=== PATIENT | male | born 1950 | race Two or more races ===

== ENCOUNTER 2019-03-26 13:22 | Inpatient (IN) | payer MEDICARE, MEDICAID ==
[~2019-03-26] VITALS: Ht 170.2 cm; Wt 64.4 kg
--- NOTE | 2019-03-26 13:40 | NUR ---
[id number] FRM DAY CARE FOR DIZZINESS S/P BOWEL MOVEMENT W/ "DARK STOOL." PATIENT A/OX4, BREATHING EVEN AND UNLABORED, NO SOB NOTED. CHANGED INTO GOWN, ATTACHED TO THE LABORATORY MECHANIC HELPER.
[2019-03-26 14:34] LABS: BASOPHILS % (AUTO) 0.3 % (0.0-2.0); EOSINOPHILS % (AUTO) 0.2 % (0.0-6.0); HEMATOCRIT 43 % (39-51); HEMOGLOBIN 14.3 g/dL (13.5-17.5); LYMPHOCYTES # (AUTO) 0.9 /CMM (0.8-4.8); LYMPHOCYTES % (AUTO) 11.2 % (20.0-44.0); MEAN CORPUSCULAR HGB CONC 33 g/dl (31.0-36.0); MEAN CORPUSCULAR VOLUME 91 fL (80-96); MONOCYTES # (AUTO) 0.5 /CMM (0.1-1.30); MONOCYTES % (AUTO) 6.3 % (2.0-12.0); NEUTROPHILS # (AUTO) 6.3 /CMM (1.8-8.9); PLATELET COUNT (AUTO) 281 /CMM (150-450); RED BLOOD CELL COUNT(AUTO) 4.73 MIL/uL (4.5-6.0); WHITE BLOOD COUNT (AUTO) 7.7 K/uL (4.3-11.0)
[2019-03-26 14:41] LABS: CALCIUM, SERUM 9.1 mg/dL (8.5-10.1); CARBON DIOXIDE 30 mmol/L (21-32); CHLORIDE 103 mmol/L (98-107); CREATININE 1.3 mg/dL (0.6-1.3); GLUCOSE 90 mg/dL (74-106); POTASSIUM 4.3 mmol/L (3.5-5.1); SODIUM SERUM 139 mmol/L (136-145); UREA NITROGEN, BLOOD 55 mg/dL (7-18)
[2019-03-26 14:47] LABS: ALANINE AMINOTRANSFERASE 17 U/L (12-78); ALBUMIN 3.6 g/dL (3.4-5.0); ALKALINE PHOSPHATASE 67 U/L (46-116); ASPARTATE AMINOTRANSFERASE 12 U/L (15-37); BILIRUBIN,DIRECT 0.1 mg/dL (0.0-0.2); BILIRUBIN,TOTAL 0.5 mg/dL (0.2-1.0); TOTAL PROTEIN, SERUM 6.7 g/dL (6.4-8.2)
--- NOTE | 2019-03-26 16:49 | NUR ---
[facility] PAGED
--- NOTE | 2019-03-26 17:31 | NUR ---
BED ASSIGN 111-2
[2019-03-26] MEDS ORDERED: ZOLPIDEM TARTRATE 5 MG TABLET PO PRN (18:00)
[2019-03-26] MEDS ORDERED: MAGNESIUM HYDROXIDE 30 ML UDC PO PRN (18:00)
[2019-03-26] MEDS ORDERED: MAG HYDROX/AL HYDROX/SIMETH 30 ML UDC PO PRN (18:00)
[2019-03-26] MEDS ORDERED: ACETAMINOPHEN 325 MG TABLET PO PRN (18:00)
[2019-03-26] MEDS ORDERED: Z GUARD REMEDY 2 OZ OINT TP PRN (18:00)
--- NOTE | 2019-03-26 18:16 | NUR ---
PATIENT TRANSFERRED TO ROOM 111-2 VIA ACLS PROTOCOL. PATIENT IN STABLE CONDITION, NO DISTRESS NOTED.
[2019-03-26 18:20] VITALS: BP 104/91
--- NOTE | 2019-03-26 18:20 | NUR ---
PIPE COVERER AND INSULATOR NOTES RECEIVED PT FROM ER VIA [facility] BLEED BY MIGDALIA FONTAINE NP. AO X 3, BELARUSIAN SPEAKING, ON ROOM AIR, NOT IN ANY DISTRESS. SINUS TACH HR 104 ON TELE MONITOR. DENIES PAIN OR DISCOMFORT AT THIS TIME. NO NAUSEA/VOMITING, AFEBRILE. VITAL SIGNS TAKEN AND RECORDED. UNIT ORIENTATION DONE AND USE OF CALL LIGHT. MADE COMFORTABLE. SAFETY MEASURES IN PLACE. WILL CONT TO MONITOR.
[2019-03-26 20:00] VITALS: BP_SYST 102; BP_SYST 114; BP_DIAS 64
--- NOTE | 2019-03-26 20:00 | NUR ---
telecommunications switch technician notes . received pts in bed a/o x4 south su[place]ese speaking , full code ,able to make needs known , no sob no distress noted , v/s stable afebrile no c/o of pain noted. pts on room air sating 98% all due meds given as ordered, admission routine care rendered pts on tele sr-st on the monitor.all needs attended too call light within reach kept pts clean dry and comfortable , body check done .intact and patent , with right forearm G#18 intact and patent .will continue to monitor pts.
[2019-03-26] MEDS: PANTOPRAZOLE 40 MG VIAL IV SCH (20:21)
[2019-03-26] MEDS: METRONIDAZOLE 500MG/ NS 100ML 500 MG in PREMIX 1 EA IV SCH (20:21)
[2019-03-27] VITALS: BP 104/60
[2019-03-27] MEDS: ONDANSETRON HCL/PF 4 MG/2 ML VIAL IVP PRN (02:04)
--- NOTE | 2019-03-27 02:50 | NUR ---
pts noted nauseated zofran 4 mg iv given as ordered.with effect , all needs attended too , will continue to monitor pts.
[2019-03-27 04:00] VITALS: BP_SYST 104; BP_SYST 133; BP_DIAS 60; BP_DIAS 92
[2019-03-27] MEDS: METRONIDAZOLE 500MG/ NS 100ML 500 MG in PREMIX 1 EA IV SCH ×3 (04:57→20:11)
--- NOTE | 2019-03-27 07:10 | NUR ---
RN OPENING NOTE PATIENT IN BED, AWAKE, PLEASANT AND ALERT. KYRGYZ SPEAKING ONLY. ON ROOM AIR, NO DISTRESS NOR PAIN AT THIS TIME. ON TELE MONITOR, SR. NPO FOR NOW. HAS RIGHT FA #18 TKO. ZOFRAN WAS GIVEN LAST NIGHT FOR NAUSEA, NO EMESIS NOTED. MED RECON NURSE ON FLOOR, WAS GIVEN MED LIST SEEN IN CHART FROM DAY CARE. BED LOCKED AND IN LOWEST POSITION. CALL LIGHT WITHIN REACH. WILL CONTINUE TO MONITOR
[2019-03-27] MEDS ORDERED: ESZO3TAB27 PO (07:54)
[2019-03-27] MEDS ORDERED: MEMA5TAB15 PO (07:54)
[2019-03-27] MEDS ORDERED: ESOM40CA PO (07:54)
[2019-03-27] MEDS ORDERED: FLUT16SP16 BNOSTRILS (07:54)
[2019-03-27] MEDS ORDERED: AMLO2.5T4 PO (07:54)
[2019-03-27] MEDS ORDERED: MELO-107 PO (07:54)
[2019-03-27] MEDS ORDERED: GABA-534 PO (07:54)
[2019-03-27] MEDS ORDERED: METO-357 PO (07:54)
[2019-03-27] MEDS ORDERED: ASPI-1152 PO (07:54)
[2019-03-27] MEDS ORDERED: LOSA1TAB42 PO (07:54)
[2019-03-27] MEDS ORDERED: DULO30CA52 PO (07:54)
[2019-03-27] MEDS ORDERED: SERT25TA5 PO (07:54)
[2019-03-27] MEDS ORDERED: ISOS30TA6 PO (07:54)
[2019-03-27] MEDS ORDERED: CILO100T PO (07:54)
[2019-03-27] MEDS ORDERED: ROSU20TA32 PO (07:54)
[2019-03-27] MEDS ORDERED: ICOS1CAP PO (07:54)
[2019-03-27] MEDS ORDERED: ERGO500014 PO (07:54)
[2019-03-27] MEDS ORDERED: CLOP75TA15 PO (07:54)
[2019-03-27] MEDS ORDERED: AMIO200T4 PO (07:54)
[2019-03-27] MEDS ORDERED: TAMS-12 PO (07:54)
[2019-03-27] MEDS ORDERED: LIDO700A30 TD (07:54)
[2019-03-27] MEDS ORDERED: NITR1PAT66 TD (07:54)
[2019-03-27 08:00] VITALS: BP 121/70
[2019-03-27] MEDS: NICOTINE PATCH (14MG) 14 MG PATCH.TD24 TD SCH (08:13)
[2019-03-27] MEDS: PANTOPRAZOLE 40 MG VIAL IV SCH ×2 (08:13→16:29)
--- NOTE | 2019-03-27 09:26 | NUR ---
RN NOTE DR DAMICO AT BEDSIDE. PATIENT NOT COMPLAINING OF ANY ABD PAIN, EVEN WITH PALPATION. AWARE PATIENT HAD NO BM SINCE HE CAME IN LAST NIGHT, HAD 1X EPISODE OF NAUSEA AND WAS GIVEN ZOFRAN PRN, NO EMESIS NOTED. NEW ORDERS OF FECAL OB AND IRON PANEL. REGULAR CARDIAC DIET. ORDERS CARRIED OUT.
[2019-03-27 09:35] LABS: BASOPHILS % (AUTO) 0.1 % (0.0-2.0); EOSINOPHILS % (AUTO) 0.1 % (0.0-6.0); HEMATOCRIT 39 % (39-51); HEMOGLOBIN 13.2 g/dL (13.5-17.5); LYMPHOCYTES # (AUTO) 0.3 /CMM (0.8-4.8); LYMPHOCYTES % (AUTO) 4.1 % (20.0-44.0); MEAN CORPUSCULAR HGB CONC 34 g/dl (31.0-36.0); MEAN CORPUSCULAR VOLUME 90 fL (80-96); MONOCYTES # (AUTO) 0.5 /CMM (0.1-1.30); MONOCYTES % (AUTO) 6.1 % (2.0-12.0); NEUTROPHILS # (AUTO) 7.6 /CMM (1.8-8.9); NEUTROPHILS % (AUTO) 89.6 % (43.0-81.0); PLATELET COUNT (AUTO) 246 /CMM (150-450); RED BLOOD CELL COUNT(AUTO) 4.34 MIL/uL (4.5-6.0); WHITE BLOOD COUNT (AUTO) 8.5 K/uL (4.3-11.0)
[2019-03-27 09:45] LABS: IRON, SERUM 19 ug/dl (50-175); TOTAL IRON BINDING CAPACITY 226 ug/dl (250-450)
[2019-03-27 10:19] LABS: FREE PSA 0.48 ng/mL (0.00-45); PROSTATE SPECIFIC ANTIGEN SCR 2.35 ng/mL (0.00-4.00); THYROID STIMULATING HORMONE 0.289 uIU/mL (0.358-3.74)
[2019-03-27 11:05] LABS: CALCIUM, SERUM 8.6 mg/dL (8.5-10.1); CREATININE 1.3 mg/dL (0.6-1.3); MAGNESIUM 1.8 mg/dL (1.8-2.4); PHOSPHORUS 2.6 mg/dL (2.5-4.9); POTASSIUM 3.5 mmol/L (3.5-5.1)
[2019-03-27 12:00] VITALS: BP 107/64
--- NOTE | 2019-03-27 14:08 | NUR ---
RN NOTE PAGED CARLA NEGRON TO APPROVE THE PATIENT'S MED RECON.
[2019-03-27 16:00] VITALS: BP 125/69
[2019-03-27] MEDS ORDERED: FLUTICASONE PROPIONATE 16 GM BOTTLE NS PRN (16:00)
[2019-03-27] MEDS ORDERED: LIDOCAINE 5% (PATCH) 1 EA PATCH TP PRN (16:00)
--- NOTE | 2019-03-27 16:02 | NUR ---
RN NOTE PHARMACY CALLED ASKING WHICH DAY PATIENT IS TAKING VITAMIN D. TRIED CALLING [facility] . NO ANSWER AT THIS TIME
[2019-03-27] MEDS: MEMANTINE HCL 5 MG TABLET PO SCH (16:30)
--- NOTE | 2019-03-27 16:30 | NUR ---
RN NOTE CARLA NEGRON AT BEDSIDE. EXPLAINED TO PATIENT THAT WE ARE STILL WAITING FOR THE OB STOOL. TRANSLATED DONE BY RAUL SPRING COILER. PER MIGDALIA, ORDER SENNA AND MIRALAX PRN PER DR DAMICO. FOR IV HYDRATION, SHE SAID SHE WILL RECHECK IF SHE'S GOING TO ORDER DUE TO PATIENT'S PAST MEDICAL HX. ALSO, ASKED MIGDALIA IF OK TO GIVE PLETAL - ANTIPLATELET/VASODILATOR DRUG. OK TO ADMINISTER Addendum: 03/27/19 at 1718 by JUAN ANTONIO MOONEY RN CARLA NEGRON ORDERED IVF 50 ML/HR
[2019-03-27] MEDS: CILOSTAZOL 100 MG TABLET PO SCH (16:31)
[2019-03-27] MEDS: SENNOSIDES/DOCUSATE SODIUM 1 TAB TABLET PO PRN (16:48)
[2019-03-27] MEDS ORDERED: Medication Not On Formulary EA (Icosapent Ethyl (Vascepa) 2 GM) PO SCH (17:00)
[2019-03-27] MEDS ORDERED: IV NS 0.9% 1,000 ML IV ONE (17:00)
[2019-03-27] MEDS ORDERED: POLYETHYLENE GLYCOL 3350 17 GM POWD.PACK PO PRN (17:00)
--- NOTE | 2019-03-27 18:58 | NUR ---
RN CLOSING NOTE PATIENT IN BED, AWAKE AND ALERT. FAMILY VISITED FOR A FEW HOURS. IMRA, DAUGHTER FROM [place] UPDATED WITH PATIENT'S CONDITION. OB STOOL PENDING. NO COMPLAINS OF ANY PAIN NOR SOB AT THIS TIME. HAS RIGHT FA #18 WITH NS AT 50 ML/HR. ALL MEDS GIVEN. ALL NEEDS MET. BED LOCKED AND IN LOWEST POSITION. CALL LIGHT WITHIN REACH. WILL ENDORSE TO NOC SHIFT FOR JAZMIN
--- NOTE | 2019-03-27 19:30 | NUR ---
COLLECTIONS TECHNICIAN OPENING NOTE RECEIVED PATIENT A/0 X4 MARSHALLESE SPEAKER. PATIENT HAS NO SIGNS OF DISTRESS OR DISCOMFORT. PATIENT IS ON ROOM AIR WITH NO SOB. IS ON THE MONITOR WITH A SINUS RHYTHM HR IN THE 90'S. PATIENT LUNG SOUNDS ARE CLEAR. ALL SKIN IS INTACT AND IS AMBULATORY WITH ASSISTANCE IF NEEDED. PATIENT HAS IV ACCESS WITH #18G WITH NS RUNNING AT 50ML/HR. ALL SAFETY PRECAUTIONS ARE APPLIED BED LOCKED IN LOW POSTION, CALL LIGHT WITHIN REACH, AND SIDE RAILS UPX2/ WILL CONTINUE TO MONITOR.
[2019-03-27 20:00] VITALS: BP 116/66
[2019-03-27] MEDS ORDERED: Medication Not On Formulary EA (Eszopiclone (Lunesta) 3 MG) PO SCH (22:00)
[2019-03-28] VITALS (9 sets, daily range): BP systolic 87–145; BP diastolic 45–74
[2019-03-28] MEDS: METRONIDAZOLE 500MG/ NS 100ML 500 MG in PREMIX 1 EA IV SCH ×3 (03:14→20:42)
[2019-03-28] MEDS: SENNOSIDES/DOCUSATE SODIUM 1 TAB TABLET PO PRN ×2 (03:38→14:20)
--- NOTE | 2019-03-28 07:00 | NUR ---
RN OPENING NOTE RECEIVED REPORT FROM BRIANDA HIDALGO. PATIENT IN BED AWAKE AND ALERT. NO COMPLAINS OF ANY PAIN AT THIS TIME. IVF AT 50 ML/HR ON LEFT FA #97. [id number] - REPORT GIVEN TO ROCKY BARRERA FOR JAZMIN
[2019-03-28 07:02] LABS: BASOPHILS % (AUTO) 0.4 % (0.0-2.0); EOSINOPHILS % (AUTO) 1.3 % (0.0-6.0); HEMATOCRIT 36 % (39-51); HEMOGLOBIN 12.1 g/dL (13.5-17.5); LYMPHOCYTES # (AUTO) 1.1 /CMM (0.8-4.8); LYMPHOCYTES % (AUTO) 26.5 % (20.0-44.0); MEAN CORPUSCULAR HGB CONC 34 g/dl (31.0-36.0); MEAN CORPUSCULAR VOLUME 91 fL (80-96); MONOCYTES # (AUTO) 0.6 /CMM (0.1-1.30); MONOCYTES % (AUTO) 15.4 % (2.0-12.0); NEUTROPHILS # (AUTO) 2.3 /CMM (1.8-8.9); NEUTROPHILS % (AUTO) 56.4 % (43.0-81.0); PLATELET COUNT (AUTO) 208 /CMM (150-450); RED BLOOD CELL COUNT(AUTO) 3.95 MIL/uL (4.5-6.0); WHITE BLOOD COUNT (AUTO) 4.1 K/uL (4.3-11.0)
--- NOTE | 2019-03-28 07:09 | NUR ---
MS RN CLOSING NOTE PATIENT IN BED WITH NO DISCOMFORT OR DISTRESS. ALL SAFETY PRECAUTIONS APPLIED. BED LOCKED IN LOW POSITION, CALL LIGHT WITHIN REACH, AND SIDE RAILS UP 3. ENDORSED PATIENT TO MORNING NURSE.
[2019-03-28 07:22] LABS: CALCIUM, SERUM 8.3 mg/dL (8.5-10.1); CREATININE 1.3 mg/dL (0.6-1.3); MAGNESIUM 1.9 mg/dL (1.8-2.4); PHOSPHORUS 2.5 mg/dL (2.5-4.9); POTASSIUM 3.6 mmol/L (3.5-5.1)
--- NOTE | 2019-03-28 07:55 | NUR ---
RN NOTE: RECEIVED BEDSIDE REPORT FROM ROCKY SCHAEFFER FOR CONTINUITY OF CARE. PATIENT WAS AWAKE, ALERT AND VERBALLY RESPONSIVE. PATIENT WAS MOSTLY KYRGYZ/SCOTTISH SPEAKING MOSTLY. A SCOTTISH SPEAKING NURSE (KIT MOREIRA RN) WAS ASKED TO TRANSLATE FOR THE PATIENT. RESPIRATION EVEN AND UNLABORED SATURATING 95% IN ROOM AIR. ON MRI SPECIALIST SR WITH OCCASIONAL PVCs HR= 80. DENIED ANY PAIN. AFEBRILE. SKIN WARM TO TOUCH. HOB ELEVATED. (L) FOREARM IV SITE NOTED PATENT AND INTACT INFUSING NS @50ML/HR. BED ALARMED AND LOCKED AT ALL TIMES. PATIENT ATE 100% OF HIS BREAKFAST MEAL. HE ATTEMPTED TO MOVE HIS BOWEL BUT NOTHING CAME OUT. PATIENT WAS BROUGHT IN THE TOILET. NO ACTIVE BLEEDING OBSERVED. CALL LIGHT WITHIN REACH. NEEDS ANTICIPATED.
[2019-03-28] MEDS: MEMANTINE HCL 5 MG TABLET PO SCH ×2 (09:00→16:49)
[2019-03-28] MEDS: NICOTINE PATCH (14MG) 14 MG PATCH.TD24 TD SCH (09:00)
[2019-03-28] MEDS: TAMSULOSIN 0.4 MG CAP.SR.24H PO SCH (09:01)
[2019-03-28] MEDS: GABAPENTIN 300 MG CAPSULE PO SCH (09:01)
[2019-03-28] MEDS: ATORVASTATIN 40 MG TABLET PO SCH (09:01)
[2019-03-28] MEDS: DULOXETINE HCL 30 MG CAPSULE.DR PO SCH (09:01)
[2019-03-28] MEDS: CILOSTAZOL 100 MG TABLET PO SCH ×2 (09:01→16:45)
[2019-03-28] MEDS: SERTRALINE HCL 25 MG TABLET PO SCH (09:01)
[2019-03-28] MEDS: MELOXICAM 7.5 MG TABLET PO SCH (09:01)
[2019-03-28] MEDS: LOSARTAN POTASSIUM 50 MG TABLET PO SCH (09:02)
[2019-03-28] MEDS: AMIODARONE HCL 200 MG TABLET PO SCH (09:02)
[2019-03-28] MEDS: AMLODIPINE BESYLATE 2.5 MG TABLET PO SCH (09:02)
[2019-03-28] MEDS: PANTOPRAZOLE 40 MG VIAL IV SCH ×2 (09:51→16:48)
[2019-03-28] MEDS: METOPROLOL SUCCINATE 50 MG TAB.SR.24H PO SCH (10:05)
[2019-03-28] MEDS: HYDROCHLOROTHIAZIDE 25 MG TABLET PO SCH (10:05)
[2019-03-28] MEDS: ISOSORBIDE MONONITRATE (30MG) 30 MG TAB.SR.24H PO SCH (10:05)
[2019-03-28] MEDS: ONDANSETRON HCL/PF 4 MG/2 ML VIAL IVP PRN (13:25)
[2019-03-28] MEDS ORDERED: POLY17PO4 PO (13:35)
[2019-03-28] MEDS ORDERED: SENN-22 PO (13:35)
[2019-03-28] MEDS ORDERED: METO-356 PO (13:37)
[2019-03-28] MEDS ORDERED: IV NS 0.9% 500 ML IV ONE (14:00)
[2019-03-28] MEDS ORDERED: IV NS 0.9% 1,000 ML IV STA (16:43)
--- NOTE | 2019-03-28 16:43 | NUR ---
RN NOTE: INFORMED MIGDALIA FONTAINE NP REGARDING THE PATIENT'S BP 93/45 HR 63. PER Willy FONTAINE NP GIVE 1L NS BOLUS X 1. ORDER NOTED AND CARRIED OUT. PATIENT MADE AWARE.
--- NOTE | 2019-03-28 17:43 | NUR ---
RN NOTE: ORTHOSTATIC BP WAS DONE AND REPORTED TO MIGDALIA FONTAINE NP. PER Willy FONTAINE NP CONTINUE WITH THE IV FLUID AND THE IV BOLUS. CONTINUE TO MONITOR THE PATIENT'S BP. PATIENT DENIED ANY DIZZINESS.
--- NOTE | 2019-03-28 17:55 | NUR ---
RN NOTE: PER MIGDALIA FONTAINE, CAT SKINNER CONTINUE TO HOLD ALL BP MEDICATIONS. ORDER NOTED AND CARRIED OUT. PATIENT MADE AWARE.
[2019-03-28] MEDS ORDERED: IV NS 0.9% 1,000 ML IV PRN (19:00)
[2019-03-28] MEDS ORDERED: IV NS 0.9% 1,000 ML BAG IV PRN (19:00)
--- NOTE | 2019-03-28 19:35 | NUR ---
RN NOTE: BEDSIDE REPORT WAS GIVEN TO PM SHIFT NURSE FOR CONTINUITY OF CARE. PATIENT DENIED ANY DIZZINESS AT THIS TIME, BUT WILL BE CLOSELY MONITORED FOR THE BLOOD PRESSURE. ON NS @50ML/HR CONTINUOUS IV FLUID. PATIENT HAD NO BOWEL MOVEMENT DURING THE DAY. WILL ENDORSE TO PM SHIFT NURSE TO MONITOR THE PATIENT IF HE WOULD HAVE ANY BOWEL MOVEMENT AND TO COLLECT IT PER MD STANDING ORDER.
--- NOTE | 2019-03-28 19:44 | NUR ---
MS RN RECEIVE PT IN BED PT AWAKE A/O X 4, STABLE AND NOT IN DISTRESS. NO SOB. NO C/O OF PAIN. WILL CONT TO MTR
--- NOTE | 2019-03-28 20:20 | NUR ---
MS RN OPENING NOTE RECEIVED PATIENT IN NO DISTRESS OR SOB. PATIENT IS ON NASAL CANNULA WITH 2L OF 02 AND TOLERATING WELL. HAS A SL IV #20 ON THE LEFT FOREARM WITH NS RUNNING AT 50ML/HR. SKIN IS INTACT. ALL SAFETY PRECAUTIONS ARE APPLIED. BED LOCKED IN LOW POSITION, CALL LIGHT WITHIN REACH, AND SIDE RAILS UP X2. WILL CONTINUE TO MONITOR PATIENT.
--- NOTE | 2019-03-28 20:27 | NUR ---
MS RN PT STABLE ENDORSE NEXT NIGHT RN PLAN OF CARE
[2019-03-29 00:15] VITALS: BP 105/63
[2019-03-29 03:11] VITALS: BP 127/45
[2019-03-29] MEDS: METRONIDAZOLE 500MG/ NS 100ML 500 MG in PREMIX 1 EA IV SCH ×2 (05:16→12:20)
--- NOTE | 2019-03-29 07:43 | NUR ---
MS RN CLOSING NOTE PATIENT IN BED WITH NO SIGNS OF DISTRESS. PATIENT ON 3L OF O2 AND NO SOB. BP IS STABLE, AM NURSE AWARE ABOUT MONITORING BP. ALL SAFETY PRECAUTIONS APPLIED. ENDORSED PATIENT TO AM NURSE.
[2019-03-29 08:00] VITALS: BP 115/66
--- NOTE | 2019-03-29 08:21 | NUR ---
MS RN NOTES RECEIVED PT IN BED/A/O X4. NO SOB AN DISCOMFORT NOTED AT THIS TIME. PT ON 3L NC SAT 99%. IV LFA PATENT AND FLUSHED WELL. SAFETY MEASURES OBSERVED. BE AT THE LOWEST POSITION LOCKED CALL LIGHT WITHIN REACH. WILL CONTINUE TO MONITOR.
[2019-03-29] MEDS: PANTOPRAZOLE 40 MG VIAL IV SCH (08:48)
[2019-03-29] MEDS: TAMSULOSIN 0.4 MG CAP.SR.24H PO SCH (08:49)
[2019-03-29] MEDS: ATORVASTATIN 40 MG TABLET PO SCH (08:49)
[2019-03-29] MEDS: SERTRALINE HCL 25 MG TABLET PO SCH (09:00)
[2019-03-29] MEDS: HYDROCHLOROTHIAZIDE 25 MG TABLET PO SCH (09:00)
[2019-03-29] MEDS: CILOSTAZOL 100 MG TABLET PO SCH (09:00)
[2019-03-29] MEDS: METOPROLOL SUCCINATE 50 MG TAB.SR.24H PO SCH (09:00)
[2019-03-29] MEDS: MEMANTINE HCL 5 MG TABLET PO SCH (09:00)
[2019-03-29] MEDS: AMLODIPINE BESYLATE 2.5 MG TABLET PO SCH (09:00)
[2019-03-29] MEDS: ISOSORBIDE MONONITRATE (30MG) 30 MG TAB.SR.24H PO SCH (09:00)
[2019-03-29] MEDS: MELOXICAM 7.5 MG TABLET PO SCH (09:00)
[2019-03-29] MEDS: DULOXETINE HCL 30 MG CAPSULE.DR PO SCH (09:00)
[2019-03-29] MEDS: GABAPENTIN 300 MG CAPSULE PO SCH (09:00)
[2019-03-29] MEDS ORDERED: ERGOCALCIFEROL (VITAMIN D 2) 50,000 UNIT CAPSULE PO SCH (09:00)
[2019-03-29] MEDS: LOSARTAN POTASSIUM 50 MG TABLET PO SCH (09:00)
[2019-03-29] MEDS: NICOTINE PATCH (14MG) 14 MG PATCH.TD24 TD SCH (09:46)
[2019-03-29] MEDS: AMIODARONE HCL 200 MG TABLET PO SCH (09:46)
[2019-03-29 16:00] VITALS: BP 125/65
== END 2019-03-29 16:25 | disposition home health service (06) | DRG 395 ==
LOC: ER 13:33 → TELE1 17:51 → MEDSG1 03-28 09:55
PROVIDERS: ADMIT Registered Nurse; ATTEND Registered Nurse
DX: K62.89 Other specified diseases of anus and rectum (principal); I10 Essential (primary) hypertension; I25.10 Atherosclerotic heart disease of native coronary artery without angina pectoris; N40.0 Benign prostatic hyperplasia without lower urinary tract symptoms; Z86.73 Personal history of transient ischemic attack (TIA), and cerebral infarction without residual deficits; E86.1 Hypovolemia; Z79.82 Long term (current) use of aspirin; Z95.1 Presence of aortocoronary bypass graft; R07.9 Chest pain, unspecified; N26.1 Atrophy of kidney (terminal); M19.90 Unspecified osteoarthritis, unspecified site; F17.210 Nicotine dependence, cigarettes, uncomplicated; Z79.01 Long term (current) use of anticoagulants
CPT/HCPCS: 36415; 71045-TC; 80048-TC; 80061-TC; 80076-TC; 83540-TC; 83735-TC; 84100-TC; 84153-TC; 84154-TC; 84443-TC; 84484-TC; 85025-TC; 85730-TC; 86850-TC; 87081-TC; 97116-TC; 97530-TC; A4216; C9113; G0378; J2405; J3490; J7030; J7040; J7050